=== PATIENT | female | born 1975 | race Caucasian/White ===

== ENCOUNTER 2020-11-08 10:13 | Emergency (ER) | payer OTHER ==
[~2020-11-08] VITALS: Ht 152.4 cm; Wt 100.0 kg
[~2020-11-08 10:13] MED LIST: AMOXICILLI250 MG/5 M PO; AMOXICILLIN500 MG PO; BENADRYL25 M1 PO; CIPROFLOXACN500 MG PO; CLARITIN-D1 TA2 PO; CVS IRON45 MG OR; FLONASE NASAL50 MCG; IRON (FERROUS S50 MG PR; LORTAB 7.5 PO; LORTAB5 OR; MUCINEX600 MG PO; NAPROXEN500 MG PO; NEOMYCIN/POLYMYXIN/G AS; OMEPRAZOLE20 MG PO; PHENERGAN SUP12.5 MG PO
[2020-11-08 11:22] LABS: URINE BACTERIA FEW hpf; URINE BILIRUBIN - DIPSTICK NEGATIVE (NEGATIVE); URINE BLOOD DIPSTICK NEGATIVE (NEGATIVE); URINE COLOR YELLOW; URINE EPITHELIAL CELLS MODERATE EPI/hpf (0-FEW); URINE GLUCOSE - DIPSTICK NEGATIVE (NEGATIVE); URINE KETONE NEGATIVE (NEGATIVE); URINE LEUK ESTERASE SMALL (NEGATIVE); URINE NITRITE - DIPSTICK NEGATIVE (Negative); URINE PH 6.5 (4.5-8.0); URINE PROTEIN - DIPSTICK NEGATIVE (NEG-TRACE)
[2020-11-08] MEDS ORDERED: NITROFURANTOIN100 M1 PO (12:11)
[2020-11-08 12:20] VITALS: BP 134/68
== END 2020-11-08 12:20 | disposition home or self-care (01) | DRG 690 ==
LOC: ED 10:13
PROVIDERS: Student in an Organized Health Care Education/Training Program
DX: N39.0 Urinary tract infection, site not specified (principal); Z97.5 Presence of (intrauterine) contraceptive device